=== PATIENT | female | born 1985 | race Caucasian/White ===

== ENCOUNTER 2016-09-10 10:54 | Emergency (ER) | payer OTHER ==
[2016-09-10 11:42] VITALS: BP 117/53
--- NOTE | 2016-09-10 12:35 | UC ---
Throat Pain/Nasal Adolfo HPI - HPI Summary HPI Summary: patient has children with strep. She has developed a severe sore throat and bilateral era and neck pain for the past 2 days. - History of Current Complaint Chief Complaint: UCRespiratory Stated Complaint: THROAT COMPLAINT Time Seen by Provider: 09/10/16 12:21 Hx Obtained From: Patient Hx Last Menstrual Period: 09/01/16 ?: No Onset/Duration: Sudden Onset, Lasting Days Severity: Severe Associated Signs & Symptoms: Positive: Dysphagia, Hoarseness - Epiglottits Risk Factors Epiglottis Risk Factors: Negative - Allergies/Home Medications Allergies/Adverse Reactions: Allergies Allergy/AdvReac Type Severity Reaction Status Date / Time Hydrocodone Allergy Rash Verified 09/10/16 11:42 Sulfamethoxazole Allergy Hives Verified 09/10/16 11:42 w/Trimethoprim [From Bactrim] Home Medications: Home Medications Acetaminophen TAB* [Tylenol TAB*] 500 mg PO Q6H PRN 09/10/16 [History Confirmed 09/10/16] Cold And Cough Med 2 tab PO Q4HR PRN 09/10/16 [History Confirmed 09/10/16] Ibuprofen TAB* [Advil TAB*] 200 mg PO Q6H PRN 09/10/16 [History Confirmed ] PMH/Surg Hx/FS Hx/Imm Hx Previously Healthy: Yes - Surgical History Surgical History: Yes Surgery Procedure, Year, and Place: 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 - Family History Known Family History: Positive: None, Hypertension, Diabetes Negative: Cardiac Disease - Social History Alcohol Use: None Substance Use Type: None Smoking Status (MU): Never Smoked Tobacco - Immunization History Most Recent Influenza Vaccination: current Review of Systems Constitutional: Negative Skin: Negative ENT: Sore Throat, Ear Ache Respiratory: Cough Cardiovascular: Negative Gastrointestinal: Negative Genitourinary: Negative Motor: Negative Neurovascular: Negative Musculoskeletal: Negative Neurological: Negative Psychological: Negative All Other Systems Reviewed And Are Negative: Yes Physical Exam Triage Information Reviewed: Yes Appearance: Well-Nourished, Ill-Appearing, Pain Distress Vital Signs: Initial Vital Signs Temp 98.4 F 09/10/16 11:37 Pulse 76 09/10/16 11:37 Resp 18 09/10/16 11:37 BP 117/53 09/10/16 11:37 Vital Signs Reviewed: Yes Eye Exam: Normal Eyes: Positive: Conjunctiva Clear ENT Exam: Normal ENT: Positive: Hearing grossly normal, Pharynx normal, Pharyngeal erythema - with white exudate, TMs normal, TM dull, TM red, Tonsillar swelling, Tonsillar exudate Dental Exam: Normal Neck exam: Normal Neck: Positive: Supple, Nontender, No Lymphadenopathy Respiratory Exam: Normal Respiratory: Positive: Chest non-tender, Lungs clear, Normal breath sounds Cardiovascular Exam: Normal Cardiovascular: Positive: RRR, No Murmur, Pulses Normal Abdominal Exam: Normal Musculoskeletal Exam: Normal Neurological Exam: Normal Psychological Exam: Normal Skin Exam: Normal Throat Pain/Nasal Course/Dx - Course Course Of Treatment: Hx obtained, exam performed, meds reviewed, treated for strep pharyngitis due to clinical presentation and hx of exposure. - Differential Dx/Diagnosis Differential Diagnosis/HQI/PQRI: Laryngitis, Otitis Media, Pharyngitis, Sinusitis, URI Provider Diagnoses: strep pharyngitis. lymphadenopathy Discharge - Discharge Plan Condition: Stable Disposition: HOME Prescriptions: Amoxicillin/Clavulanate TAB* [Augmentin TAB 875*] 875 mg PO BID #20 tab Patient Education Materials: Strep Throat (ED) Referrals: Megan Mac [Primary Care Provider] - Additional Instructions: take the medication as prescribed. increase your fluid intake and get plenty of rset. Salt water gargles will help relief some pain. Follow up with any increase in symptoms
== END 2016-09-10 12:34 | disposition home or self-care (01) ==
LOC: UCCORT 10:54
DX: J02.0 Streptococcal pharyngitis (principal); R59.1 Generalized enlarged lymph nodes; Z88.5 Allergy status to narcotic agent; Z88.2 Allergy status to sulfonamides
CPT/HCPCS: 99212; G0463

== ENCOUNTER 2017-02-10 13:57 | Emergency (ER) | payer OTHER ==
[2017-02-10 14:18] VITALS: BP 151/71
--- NOTE | 2017-02-10 14:49 | UC ---
Respiratory Complaint HPI - HPI Summary HPI Summary: 31 yo female with onset of itchy swollen eyes/runny nose and sinus pressure after exposed to some dogs - History of Current Complaint Chief Complaint: UCRespiratory Stated Complaint: SINUS Time Seen by Provider: 02/10/17 14:27 Hx Obtained From: Patient Hx Last Menstrual Period: 12/20/16 Onset/Duration: Sudden Onset Timing: Constant Severity Initially: Mild Severity Currently: Mild Pain Intensity: 3 Pain Scale Used: 0-10 Numeric Character: Cough: Nonproductive Aggravating Factors: Nothing Alleviating Factors: Nothing Associated Signs And Symptoms: Positive: Negative, Nasal Congestion, Sinus Discomfort - Allergies/Home Medications Allergies/Adverse Reactions: Allergies Allergy/AdvReac Type Severity Reaction Status Date / Time Hydrocodone Allergy Rash Verified 02/10/17 14:18 Sulfamethoxazole Allergy Hives Verified 02/10/17 14:18 w/Trimethoprim [From Bactrim] Home Medications: Home Medications Levonorgestrel (Iud) [Mirena IUD] 20 mcg IU DAILY 02/10/17 [History Confirmed ] PMH/Surg Hx/FS Hx/Imm Hx Previously Healthy: Yes - Surgical History Surgical History: Yes Surgery Procedure, Year, and Place: 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 - Family History Known Family History: Positive: Hypertension, Diabetes Negative: Cardiac Disease - Social History Alcohol Use: None Substance Use Type: None Smoking Status (MU): Never Smoked Tobacco - Immunization History Most Recent Influenza Vaccination: current Review of Systems Constitutional: Negative Skin: Negative Eyes: Eye Redness ENT: Nasal Discharge, Sinus Congestion, Sinus Pain/Tenderness Respiratory: Negative Cardiovascular: Negative Gastrointestinal: Negative Genitourinary: Negative Motor: Negative Neurovascular: Negative Musculoskeletal: Negative Neurological: Negative Psychological: Negative All Other Systems Reviewed And Are Negative: Yes Physical Exam Triage Information Reviewed: Yes Appearance: Well-Appearing, No Pain Distress, Well-Nourished Vital Signs: Initial Vital Signs Temp 97.6 F 02/10/17 14:14 Pulse 88 02/10/17 14:14 Resp 16 02/10/17 14:14 BP 151/71 02/10/17 14:14 Pulse Ox 98 02/10/17 14:14 Vital Signs Reviewed: Yes Eyes: Positive: Conjunctiva Inflamed, Other: - slight lid edema ENT: Positive: Hearing grossly normal. Negative: Nasal congestion, Nasal drainage, Tonsillar swelling, Tonsillar exudate, Trismus, Muffled/hoarse voice Neck: Positive: Supple, Nontender Respiratory: Positive: Lungs clear, Normal breath sounds, No respiratory distress, No accessory muscle use Cardiovascular: Positive: RRR, No Murmur Musculoskeletal: Positive: ROM Intact Neurological: Positive: Alert Psychological: Positive: Normal Response To Family Skin Exam: Normal UC Diagnostic Evaluation - Laboratory O2 Sat by Pulse Oximetry: 98 Respiratory Course/Dx - Differential Dx/Diagnosis Provider Diagnoses: allegic rhinitis. allergic conjunctivitis Discharge - Discharge Plan Condition: Stable Disposition: HOME Prescriptions: Fluticasone NASAL SPRAY 50MCG* [Flonase NASAL SPRAY 50MCG*] 2 spray BOTH NARES DAILY #1 btl hydrOXYzine HCL TAB* [Atarax TAB*] 25 - 50 mg PO BEDTIME PRN #10 tab PRN Reason: Allergy Symptoms Patient Education Materials: Allergic Rhinitis (ED), Conjunctivitis (ED) Referrals: Megan Mac [Primary Care Provider] - 2 Weeks (for BP recheck) Additional Instructions: allergic rhinitis and allergic conjunctivitis I suggest you also use ZADITOR eye drops (OTC) you need your BP rechecked in a few weeks
== END 2017-02-10 14:44 | disposition home or self-care (01) ==
LOC: UCCORT 13:57
DX: J30.9 Allergic rhinitis, unspecified (principal); H10.10 Acute atopic conjunctivitis, unspecified eye; Z88.5 Allergy status to narcotic agent; Z88.2 Allergy status to sulfonamides
CPT/HCPCS: 99212; G0463

== ENCOUNTER 2017-07-24 09:30 | Emergency (ER) | payer OTHER ==
[2017-07-24 10:46] VITALS: BP 120/69
--- NOTE | 2017-07-24 13:06 | UC ---
FLU HPI - HPI Summary HPI Summary: 2 DAYS OF HERNANDEZ, COUGH, CONGESTION, ST AND FATIGUE. NO FEVER. REQUESTING FLU AND STREP TESTING. - History of Current Complaint Chief Complaint: UCGeneralIllness Stated Complaint: COUGH Time Seen by Provider: 07/24/17 12:37 Hx Obtained From: Patient Hx Last Menstrual Period: ~07/17/17 Onset/Duration: Gradual Onset, Lasting Days, Still Present Severity Currently: Moderate Severity Initially: Moderate Pain Intensity: 6 Pain Scale Used: 0-10 Numeric Associated Signs & Symptoms: Positive: Cough, Sore Throat, Nasal Congestion, Headache - Allergy/Home Medications Allergies/Adverse Reactions: Allergies Allergy/AdvReac Type Severity Reaction Status Date / Time hydrocodone Allergy Rash Verified 07/24/17 10:42 Sulfa (Sulfonamide Allergy Hives Verified 07/24/17 10:42 Antibiotics) Home Medications: Home Medications Etonogestrel [Nexplanon] 68 mg IMPLANT ONCE 07/24/17 [History Confirmed 07/24/17 ] Sertraline* [Zoloft*] 25 mg PO DAILY 07/24/17 [History Confirmed 07/24/17] PMH/Surg Hx/FS Hx/Imm Hx Psychological History: Anxiety, Depression - Surgical History Surgical History: Yes Surgery Procedure, Year, and Place: 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 - Family History Known Family History: Positive: Hypertension, Diabetes Negative: Cardiac Disease - Social History Alcohol Use: None Substance Use Type: None Smoking Status (MU): Never Smoked Tobacco - Immunization History Most Recent Influenza Vaccination: current Review of Systems Constitutional: Fatigue ENT: Sore Throat, Nasal Discharge Respiratory: Cough Cardiovascular: Negative Gastrointestinal: Negative Neurological: Headache All Other Systems Reviewed And Are Negative: Yes Physical Exam Triage Information Reviewed: Yes Appearance: Well-Appearing, No Pain Distress, Well-Nourished Vital Signs: Initial Vital Signs Temp 98.3 F 07/24/17 10:41 Pulse 72 07/24/17 10:41 Resp 16 07/24/17 10:41 BP 120/69 07/24/17 10:41 Pulse Ox 100 07/24/17 10:41 Vital Signs Reviewed: Yes Eyes: Positive: Conjunctiva Clear ENT: Positive: Hearing grossly normal, Pharynx normal, Nasal congestion, TMs normal Neck: Positive: Supple, Nontender, No Lymphadenopathy Respiratory Exam: Normal Cardiovascular Exam: Normal Abdomen Description: Positive: Soft Musculoskeletal: Positive: No Edema Neurological: Positive: Alert Psychological: Positive: Age Appropriate Behavior Skin: Negative: rashes Diagnostics - Laboratory Diagnostic Studies Completed/Ordered: RAPID STREP NEGATIVE. FLU SWAB NEGATIVE Flu Course/Dx - Differential Dx/Diagnosis Provider Diagnoses: INFLUENZA-LIKE ILLNESS Discharge - Discharge Plan Condition: Stable Disposition: HOME Prescriptions: Oseltamivir CAP* [Tamiflu CAP*] 75 mg PO BID #10 cap Patient Education Materials: Influenza (ED) Forms: *Work Release Referrals: Megan Mac [Primary Care Provider] - If Needed Additional Instructions: SWAB NEGATIVE FOR FLU. NEGATIVE FOR STREP. GIVEN YOUR SYMPTOMS AND CLOSE FAMILY MEMBER WITH POSITIVE FLU WILL TREAT WITH TAMIFLU. OTC MEDS NEEDED FOR FEVER, BODY ACHES. STAY WELL HYDRATED AND RESTED. SEEK FOLLOW-UP IF YOU ARE NOT IMPROVING EXPECTED.
== END 2017-07-24 13:16 | disposition home or self-care (01) ==
LOC: UCCORT 09:30
DX: R05 Cough (principal); R51 Headache; J34.89 Other specified disorders of nose and nasal sinuses; J02.9 Acute pharyngitis, unspecified; R53.83 Other fatigue; F41.8 Other specified anxiety disorders
CPT/HCPCS: 87502; 87651; 99212; G0463

== ENCOUNTER 2019-03-18 07:36 | Emergency (ER) | payer SELFPAY ==
[2019-03-18 07:58] VITALS: BP 123/109
--- NOTE | 2019-03-18 08:09 | UC ---
Abdominal Pain Female HPI - HPI Summary HPI Summary: Patient is a 33-year-old female here with abdominal pain. Patient's had right upper quadrant abdominal pain for the past week. Patient's pain is constant. Patient has associated nausea, vomiting or diarrhea after eating. Patient's had no fever, chills. Patient's had no dysuria, hematuria, vaginal bleeding, vaginal discharge. Patient single episode 2 weeks ago that was much shorter in nature. Medications reviewed - History of Current Complaint Chief Complaint: UCGI Stated Complaint: STOMACH CRAMPS,DIARRHEA,VOMITTING Time Seen by Provider: 03/18/19 08:00 Hx Obtained From: Patient Hx Last Menstrual Period: Mar 07 ?: No Onset/Duration: Sudden Onset Pain Intensity: 9 Allergies/Adverse Reactions: Allergies Allergy/AdvReac Type Severity Reaction Status Date / Time hydrocodone Allergy Rash Verified 03/18/19 07:58 Sulfa (Sulfonamide Allergy Hives Verified 03/18/19 07:58 Antibiotics) PMH/Surg Hx/FS Hx/Imm Hx Previously Healthy: Yes - Surgical History Surgical History: Yes Surgery Procedure, Year, and Place: 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 - Family History Known Family History: Positive: Hypertension, Diabetes Negative: Cardiac Disease - Social History Alcohol Use: None Substance Use Type: None Smoking Status (MU): Never Smoked Tobacco - Immunization History Most Recent Influenza Vaccination: current Review of Systems All Other Systems Reviewed And Are Negative: Yes Constitutional: Negative: Fever, Chills ENT: Negative: Nasal Discharge Respiratory: Negative: Shortness Of Breath, Cough Cardiovascular: Negative: Palpitations, Chest Pain Gastrointestinal: Positive: Abdominal Pain, Vomiting, Diarrhea, Nausea Genitourinary: Negative: Dysuria, Hematuria Physical Exam - Summary Physical Exam Summary: Vital Signs Reviewed: Yes A+Ox3, no distress Eyes: Conjunctiva Clear, PERRL. EOM intact and full ENT: Hearing grossly normal TM x 2 clear, moist, uvula midline, no exudate, no erythema Neck: Positive: Supple Respiratory: Positive: No respiratory distress, No accessory muscle use + CTA throughout no w/r Cardiovascular: RRR nl s1, s2 no m/r CBT <2 sec abd tenderness in the epigastrium and right upper quadrant. Negative Moreno sign. No rebound or guarding. Musculoskeletal Exam: COWAN x 4 without difficulty Strength Intact, ROM Intact Neurological: Positive: Alert, + sensation throughout Psychological: Positive: Normal Response To Family Skin: no rash, no ecchymosis Triage Information Reviewed: Yes Vital Signs: Initial Vital Signs Temp 97.7 F 03/18/19 07:50 Pulse 71 03/18/19 07:50 Resp 18 03/18/19 07:50 BP 123/109 03/18/19 07:50 Pulse Ox 96 03/18/19 07:50 Abd Pain Female Course/Dx - Course Course Of Treatment: Patient is here with right upper quadrant pain, vomiting, diarrhea. Patient's pain has been constant for the past week. Given patient's symptomology and pain location, patient was sent via POV to the emergency department for workup of her gallbladder and pancreas. - Differential Dx/Diagnosis Provider Diagnosis: RUQ pain, Vomiting, Diarrhea Discharge ED - Sign-Out/Discharge Documenting (check all that apply): Patient Departure All imaging exams completed and their final reports reviewed: No Studies - Discharge Plan Condition: Stable Disposition: HOME-RECOMMEND TO ED Referrals: Megan Mac [Primary Care Provider] - Additional Instructions: Please go straight to the emergency department to have your gallbladder and pancreas evaluated. - Billing Disposition and Condition Condition: STABLE Disposition: Home-Recommend to ED
== END 2019-03-18 08:13 | disposition home health service (06) ==
LOC: UCCORT 07:36
DX: R10.11 Right upper quadrant pain (principal); R11.10 Vomiting, unspecified; R19.7 Diarrhea, unspecified; Z88.2 Allergy status to sulfonamides; Z88.5 Allergy status to narcotic agent
CPT/HCPCS: 99212; G0463

== ENCOUNTER 2019-06-18 14:18 | Emergency (ER) | payer SELFPAY ==
[2019-06-18 14:41] VITALS: BP 127/80
--- NOTE | 2019-06-18 15:04 | UC ---
Respiratory Complaint HPI - HPI Summary HPI Summary: Cough for 4 days, SOB with exertion but denies chest pain or dizziness, burning chest pain with inspiration/ expiration worsens with cough; sore throat - History of Current Complaint Chief Complaint: UCRespiratory Stated Complaint: BURNING IN CHEST,SOB, COUGH Time Seen by Provider: 06/18/19 14:54 Hx Obtained From: Patient Hx Last Menstrual Period: early Dec Pain Intensity: 7 Pain Scale Used: 0-10 Numeric Aggravating Factors: Nothing Alleviating Factors: Nothing - Allergies/Home Medications Allergies/Adverse Reactions: Allergies Allergy/AdvReac Type Severity Reaction Status Date / Time hydrocodone Allergy Rash Verified 06/18/19 14:41 Sulfa (Sulfonamide Allergy Hives Verified 06/18/19 14:41 Antibiotics) PMH/Surg Hx/FS Hx/Imm Hx Previously Healthy: Yes Psychological History: Depression - Surgical History Surgical History: Yes Surgery Procedure, Year, and Place: 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 - Family History Known Family History: Positive: Hypertension, Diabetes Negative: Cardiac Disease - Social History Alcohol Use: None Substance Use Type: None Smoking Status (MU): Never Smoked Tobacco - Immunization History Most Recent Influenza Vaccination: current Review of Systems All Other Systems Reviewed And Are Negative: Yes Constitutional: Negative: Fever Skin: Negative: Rash ENT: Positive: Sore Throat, Sinus Congestion Respiratory: Positive: Shortness Of Breath, Cough, Other - pleuritic chest pain Cardiovascular: Negative: Chest Pain Neurological: Negative: Headache, Weakness, Other - dizziness Physical Exam Triage Information Reviewed: Yes Appearance: Well-Appearing Vital Signs: Initial Vital Signs Temp 98.6 F 06/18/19 14:33 Pulse 87 06/18/19 14:33 Resp 28 06/18/19 14:33 BP 127/80 06/18/19 14:33 Pulse Ox 100 06/18/19 14:33 Vital Signs Reviewed: Yes Eyes: Positive: Conjunctiva Clear ENT: Positive: Pharynx normal, TMs normal, Uvula midline Neck: Positive: Supple, Nontender, No Lymphadenopathy Respiratory: Positive: Lungs clear, Other: - coughing during exam upon inspiration Cardiovascular Exam: Normal Neurological: Positive: Alert Skin: Negative: Rashes Respiratory Course/Dx - Course Course Of Treatment: Bronchitis with RAD in a pt. who has an acute viral infection. Discussed this is likely self limiting but gave meds to help w/ inflammatory process. Exam essentially unremarkable. Vitals are good, good O2. Advised for her to return if worsening but if sob worsens to go to Ed. - Differential Dx/Diagnosis Differential Diagnosis/HQI/PQRI: Bronchitis Provider Diagnosis: Bronchitis Discharge ED - Sign-Out/Discharge Documenting (check all that apply): Patient Departure All imaging exams completed and their final reports reviewed: No Studies - Discharge Plan Condition: Good Disposition: HOME Prescriptions: Benzonatate CAP* [Tessalon 100 MG CAP*] 100 mg PO TID 5 Days #15 cap methylPREDNISolone [Medrol Dosepak 4 MG*] 0 mg PO .SEE STEPHEN INSTRUCTION #1 stephen Patient Education Materials: Acute Bronchitis (ED), Reactive Airways Disease ( ED) Forms: *Work Release Referrals: Megan Mac [Primary Care Provider] - Additional Instructions: If worsening please return. - Billing Disposition and Condition Condition: GOOD Disposition: Home - Attestation Statements Provider Attestation: Per institutional requirements, I have reviewed the chart, however, I was not consulted specifically or made aware of this patient by the midlevel provider. I did not personally evaluate, interact with , or disposition this patient.
== END 2019-06-18 15:17 | disposition home or self-care (01) ==
LOC: UCCORT 14:18
DX: J45.909 Unspecified asthma, uncomplicated (principal); B34.9 Viral infection, unspecified; Z88.5 Allergy status to narcotic agent; Z88.2 Allergy status to sulfonamides
CPT/HCPCS: 99212; G0463

== ENCOUNTER 2019-08-16 10:30 | Emergency (ER) | payer OTHER ==
--- OUTSIDE RECORDS SUMMARY | 2019-08-16 10:43 | XMS REPORT | Continuity of Care Document ---
:1985 External Reference #:[id number] Author Name Jodee Salazar NP Address [address] [place] [id number] Care Team Providers Name Role Phone Jacki Pereira FNP Care Team Information [employer] Le[employer] Agent [phone] Problems Active Problems Provider Date Viral disease Jodee Salazar NP Onset: 12/27/2015 Social History Type Date Description Comments Sex Female Tobacco Use Reviewed: 09/09/18 Never Smoked Cigars Tobacco Use Reviewed: 09/09/18 Never Smoked A Pipe Smoking Status Reviewed: 09/09/18 Never Smoked A Pipe Tobacco Use Reviewed: 09/09/18 Never Used Smokeless Tobacco ETOH Use 06/10/2018 Denies alcohol use Tobacco Use Reviewed: 06/10/18 Patient has never smoked Recreational Drug Use 06/10/2018 Denies Drug Use Recreational Drug Use 06/10/2018 Teaching provided regarding Naloxone/Narcan Training Available At [facility] Tattoo/Piercing Tattoo professional Tattoo/Piercing 06/10/2018 Piercings professionally done Allergies, Adverse Reactions, Alerts Active Allergies Reaction Severity Comments Date Vicadin 12/04/2014 Bactrim 12/04/2014 Medications Active Medications SIG Qnty Indications Ordering Provider Date Antidepressant Unknown Clonidine HCL Unknown 0.1mg Tablets Medications Administered in Office Medication SIG Qnty Indications Ordering Provider Date Azithromycin take 2 tablets 2tabs Z11.3 Jodee Salazar, 07/26/2019 500mg Tablets by mouth once TESTER OPERATOR J-Azithromycin, 500MG, Jodee Salazar, 07/26/2019 Qnty 2 TESTER OPERATOR Injection Emergency Contraceptive Edith Martin, 05/25/2017 TESTER OPERATOR Injection Nexplanon Device Edith Martin, 05/25/2017 Injection TESTER OPERATOR J-Azithromycin, 500MG, Tonia Townsend 03/08/2014 Qnty 2 Injection Immunizations CPT Code Status Date Vaccine Lot # [id number] Given 05/11/2014 J-Influenza Virus Split 3 Yrs And Above For Intramuscular Use Vital Signs Date Vital Result Comment 07/26/2019 2:37pm BP Systolic 134 mmHg BP Diastolic 80 mmHg Heart Rate 84 /min Weight 241.00 lb 12/01/2018 12:39pm BP Systolic 114 mmHg BP Diastolic 68 mmHg Results Test Acquired Date Facility Test Result H/L Range Note Laboratory test 07/26/2019 [facility] Trichomonas negative finding Laboratory test 07/26/2019 [facility] Culture, Urine, No Growth 1 finding Routine Enhanced PDF Report [id number] SEE IMAGE Chlamydia/N. 07/26/2019 [facility] Chlamydia NOT DETECTED Normal Not Detected Gonorrhoeae Rna, Trachomatis Tma, Uroge Rna, Tma, Urogenital Neisseria Gonorrhoeae Rna, Tma, Urogenital NOT DETECTED Normal Not Detected Comment (SEE NOTE) 2 Laboratory test finding 07/26/2019 [facility] Enhanced PDF Report SEE IMAGE [id number] Urinalysis DIP Only.... 07/26/2019 [facility] Urine Leukocyte Esterase Neg QN Urine Nitrite QN Neg Urine Blood ++ Urine PH 5.0 Urine Protein Random Neg Urine Ketone Random Neg Urine Glucose QN Random Neg Laboratory test finding 07/26/2019 [facility] Test Urine..... Negative Wet Prep.... 07/26/2019 [facility] WBC Smear few Clue Cells Vag Fluid Wet Prep 0 Mary Wet Prep few Lactobacillus Wet Prep few Whiff Wet Prep neg. Bacteria Wet Prep n/a PH Wet Prep 7.5 High multiple rbc's Misc Other Test no trich seen 1 CULTURE, URINE, ROUTINE Micro Number: [id number] Test Status: Final Specimen Source: URINE Specimen Quality: Adequate Result: No Growth 2 The analytical performance characteristics of this assay, when used to test SurePath(TM) specimens have been determined by [employer]. The modifications have not been cleared or approved by the FDA. This assay has been validated pursuant to the CLIA regulations and is used for clinical purposes. For additional information, please refer to https://education.[employer]ize/faq/EGS777 (This link is being provided for information/ educational purposes only.) Procedures Description No Information Available Medical Devices Description No Information Available Encounters Description No Information Available Assessments Date Code Description Provider 07/26/2019 Z11.3 Encounter for screening for infections with a Jodee Salazar NP predominantly sexual mode of transmission 07/26/2019 Z30.09 Encounter for other general counseling and Jodee Salazar NP advice on contraception 07/26/2019 Z32.02 Encounter for test, result negative Jodee Salazar NP 07/26/2019 N39.0 Urinary tract infection, site not specified Jodee Salazar NP Plan of Treatment 07/26/2019 - Jodee Salazar NPZ11.3 Encounter for screening for infections with a predominantly sexual mode of transmissionNew Medication:Azithromycin 500 mg - take 2 tablets by mouth onceComments:Cervix is friable. Copious clear discharge. Few WBCs on wet prep. No tenderness on exam. Will treat for possible cervicitis with Zithromax 1 gram po- Suspect CT. Administered Zithromax - reviewed use of, side effects and precautions of abx use with patient. Advised abstinence x 7 days. Advised to call if sx worsen or do not improve. Reviewed STD risks and prevention with patient. Patient states understanding.Follow up: prn no improvement in sxZ30.09 Encounter for other general counseling and advice on contraceptionComments:Plans abstinence at this timeZ32.02 Encounter for test, result [id number] Urinary tract infection, site not specified Functional Status Description No Information Available Mental Status Description No Information Available Referrals Description No Information Available
--- OUTSIDE RECORDS SUMMARY | 2019-08-16 10:43 | XMS REPORT | Continuity of Care Document ---
:1985 External Reference #:[id number] Author Name Jodee Salazar NP Address [address] [place] [id number] Care Team Providers Name Role Phone Jacki Pereira FNP Care Team Information Senior Net C Developer [phone] Problems Active Problems Provider Date Viral disease [...] Teaching provided regarding Naloxone/Narcan Training Available At [facility] Tattoo/Piercing Tattoo professional Tattoo/Piercing 06/10/2018 Piercings professionally done Allergies, Adverse Reactions, Alerts Active Allergies Reaction Severity Comments Date Vicadin 12/04/2014 Bactrim 12/04/2014 Medications Active Medications SIG Qnty Indications Ordering Provider Date Antidepressant Unknown Clonidine HCL Unknown 0.1mg Tablets Medications Administered in Office Medication SIG Qnty Indications Ordering Provider Date Azithromycin take 2 tablets 2tabs Z11.3 Jodee Salazar, 07/26/2019 500mg Tablets by mouth once DIABETES TERRITORY MANAGER J-Azithromycin, 500MG, Jodee Salazar, 07/26/2019 Qnty 2 DIABETES TERRITORY MANAGER Injection Emergency Contraceptive Edith Martin, 05/25/2017 DIABETES TERRITORY MANAGER Injection Nexplanon Device Edith Martin, 05/25/2017 Injection DIABETES TERRITORY MANAGER J-Azithromycin, 500MG, Tonia Townsend 03/08/2014 Qnty 2 Injection Immunizations CPT Code Status Date Vaccine Lot # [id number] Given 05/11/2014 J-Influenza Virus Split 3 Yrs And Above For Intramuscular Use Vital Signs Date Vital Result Comment 07/26/2019 2:37pm BP Systolic 134 mmHg BP Diastolic 80 mmHg Heart Rate 84 /min Weight 241.00 lb 12/01/2018 12:39pm BP Systolic 114 mmHg BP Diastolic 68 mmHg Results Test Acquired Date Facility Test Result H/L Range Note Laboratory test 07/26/2019 [facility] Trichomonas negative finding Laboratory test 07/26/2019 [facility] Culture, Urine, No Growth 1 finding Routine Enhanced PDF Report [id number] SEE IMAGE Chlamydia/N. 07/26/2019 [facility] Chlamydia NOT DETECTED Normal Not Detected Gonorrhoeae Rna, Trachomatis Tma, Uroge Rna, Tma, Urogenital Neisseria Gonorrhoeae Rna, Tma, Urogenital NOT DETECTED Normal Not Detected Comment (SEE NOTE) 2 Laboratory test finding 07/26/2019 [facility] Enhanced PDF Report SEE IMAGE [id number] Urinalysis DIP Only.... 07/26/2019 [facility] Urine Leukocyte Esterase Neg QN Urine Nitrite QN Neg Urine Blood ++ Urine PH 5.0 Urine Protein Random Neg Urine Ketone Random Neg Urine Glucose QN Random Neg Laboratory test finding 07/26/2019 [facility] Test Urine..... Negative Wet Prep.... 07/26/2019 [facility] WBC Smear few Clue Cells Vag Fluid Wet Prep 0 Mary Wet Prep few Lactobacillus Wet Prep few Whiff Wet Prep neg. Bacteria Wet Prep n/a PH Wet Prep 7.5 High multiple rbc's Misc Other Test no trich seen 1 CULTURE, URINE, ROUTINE Micro Number: [id number] Test Status: Final Specimen Source: URINE Specimen Quality: Adequate Result: No Growth 2 The analytical performance characteristics of this assay, when used to test SurePath(TM) specimens have been determined by [employer]. The modifications have not been cleared or approved by the FDA. This assay has been validated pursuant to the CLIA regulations and is used for clinical purposes. For additional information, please refer to https://education.[employer]/faq/AIY838 (This link is being provided for information/ [...] at this timeZ32.02 Encounter for test, result [id number] Urinary tract infection, site not specified Functional Status Description No Information Available Mental Status Description No Information Available Referrals Description No Information Available
[2019-08-16 10:47] VITALS: BP 115/67
--- NOTE | 2019-08-16 11:20 | UC ---
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 She complains of pain to the medial aspect of her right foot and mostly at the base of the great toe. She has been ambulatory but with pain. The injury lifted her great toenail however it continues to be in place. - History of Current Complaint Chief Complaint: UCLowerExtremity Stated Complaint: RT FOOT INJURY Time Seen by Provider: 08/16/19 10:45 Hx Obtained From: Patient Hx Last Menstrual Period: "first week of Jul" ?: No Onset/Duration: Sudden Onset Severity Initially: Moderate Severity Currently: Moderate Pain Intensity: 10 Aggravating Factor(s): Standing, Ambulation Alleviating Factor(s): Nothing Able to Bear Weight: Yes - But with pain. 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 The great toenail had been lifted but is now back in place. Is Patient Immunocompromised?: No Physical Exam Triage Information Reviewed: Yes Appearance: Well-Appearing, No Pain Distress - No pain distress unless she moves her foot or it's touched., Well-Nourished Vital Signs: Initial Vital Signs Temp 98.6 F 08/16/19 10:42 Pulse 71 08/16/19 10:42 Resp 16 08/16/19 10:42 BP 115/67 08/16/19 10:42 Pulse Ox 100 08/16/19 10:42 Vital Signs Reviewed: Yes Musculoskeletal: Positive: Other: - Good peripheral pulses, neuro sensation and capillary refill. No bruising, erythema, deformity or swelling is noted. Ankle is not involved and nontender. Achilles is intact. Tenderness on palpation of the medial aspect of her right foot and toes. Neurological Exam: Normal Psychological Exam: Normal Skin: Positive: Other - See above notes. Lower Extremity Course/Dx - Course Course Of Treatment: Right foot x-ray:Indication: RIGHT foot pain following crush injury to the first toe. Comparison: January 19, 2012 Technique: AP, lateral, and oblique views RIGHT foot. REPORT AND IMPRESSION: #. Soft tissue swelling and gas at the great toe nailbed. #. Negative for fracture or articular malalignment. Preserved joint spaces. #. Subchondral sclerosis at the head of the first proximal phalanx is chronic likely representing bone islands given preserved joint space without concern. The patient is fairly comfortable here. She was given crutches and a bulky dressing was applied to protect the toenail. She is to follow-up with her primary care provider as needed. No work for the rest of the week. - Differential Dx/Diagnosis Provider Diagnosis: Contusion of right great toe with damage to nail, initial encounter Discharge ED - Sign-Out/Discharge Documenting (check all that apply): Patient Departure All imaging exams completed and their final reports reviewed: Yes - Discharge Plan Condition: Fair Disposition: HOME Patient Education Materials: [employer] (ED) Forms: *Work Release Referrals: Ramón Spears MD [Medical Doctor] - Megan Mac [Primary Care Provider] - Additional Instructions: Elevate as much as possible, take Tylenol every 4 hours for pain and may alternate with ibuprofen every 8 hours. Definite follow-up with your primary care provider if you are still having pain on Thursday and unable to bear weight. - Billing Disposition and Condition Condition: FAIR Disposition: Home
== END 2019-08-16 12:17 | disposition home or self-care (01) ==
LOC: UCCORT 10:30
DX: S90.111A Contusion of right great toe without damage to nail, initial encounter (principal); Z88.5 Allergy status to narcotic agent; Z88.2 Allergy status to sulfonamides; W22.8XXA Striking against or struck by other objects, initial encounter; Y92.9 Unspecified place or not applicable; Y99.0 Civilian activity done for income or pay
CPT/HCPCS: 99213; G0463